=== PATIENT | male | born 1955 | race Caucasian/White ===

== ENCOUNTER 2018-03-15 11:20 | Emergency (ER) | payer BC, MEDICAID ==
[~2018-03-15] VITALS: Ht 172.7 cm; Wt 61.3 kg
--- NOTE | 2018-03-15 11:37 | NUR ---
PATIENT AMBULATED TO BED 8 AT THIS TIME.
[2018-03-15 11:38] VITALS: BP 134/78
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
--- NOTE | 2018-03-15 13:32 | NUR ---
Patient discharged with v/s stable. Written and verbal after care instructions given and explained. Patient verbalized understanding. Ambulatory with steady gait. All questions addressed prior to discharge. Advised to follow up with PMD.
[2018-03-15 13:33] VITALS: BP 134/78
== END 2018-03-15 13:32 | disposition home or self-care (01) ==
LOC: MED 11:20
DX: S60.352A Superficial foreign body of left thumb, initial encounter (principal); W45.8XXA Other foreign body or object entering through skin, initial encounter; Y93.89 Activity, other specified; Y92.89 Other specified places as the place of occurrence of the external cause; Y99.8 Other external cause status
CPT/HCPCS: 99283